=== PATIENT | male | born 1990 | race Two or more races ===

== ENCOUNTER 2025-10-15 22:44 | Emergency (ER) | payer SELFPAY ==
[2025-10-15 22:46] VITALS: BMI 25.8
--- NOTE | 2025-10-15 23:38 | PC.NURSE ---
Pt did not answer when name was called and was not found outside.
--- NOTE | 2025-10-15 23:39 | PC.NURSE ---
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
== END 2025-10-15 23:40 | disposition left against medical advice (07) ==
LOC: SERX 10-16 00:02
PROVIDERS: Emergency Provider Emergency Medicine
DX: Z53.21 Procedure and treatment not carried out due to patient leaving prior to being seen by health care provider (principal)
CPT/HCPCS: 99281